=== PATIENT | male | born 1950 | race Caucasian/White ===

== ENCOUNTER 2016-09-02 23:41 | Emergency (ER) | payer MEDICARE, OTHER ==
[2016-09-03] MEDS ORDERED: DEXTROSE 50% 50 ML ONE ×2 (03:42→05:25)
== END 2016-09-03 06:38 | disposition home or self-care (01) ==
LOC: ER 23:41
DX: T38.3X1A Poisoning by insulin and oral hypoglycemic [antidiabetic] drugs, accidental (unintentional), initial encounter (principal); E11.40 Type 2 diabetes mellitus with diabetic neuropathy, unspecified; Z79.4 Long term (current) use of insulin
CPT/HCPCS: 36415; 80053; 82947; 85025; 96374; 96376